=== PATIENT | female | born 1945 | race Asian ===

== ENCOUNTER → 2016-06-28 | Outpatient (CLI) | payer MEDICARE, OTHER ==
[~2016-06-28] MED LIST: COLACE PO; COUMADIN5 MG PO; DIOVAN HCT 80/11 TAB; DIOVAN HCT 80/11 TAB PO; ESTRACE0.5 MG PO; FISH OIL 1,2001 EAC1 PO; LIPITOR PO; LIPITOR20 MG; LORTAB 10/500 T1 TAB PO; MULTI-VITAMIN1 EAC1 PO; NASONEX17 GM; RECLAST 55 MG/100 M; VALSARTAN-HCTZ1 EACH PO; WOMEN'S DAILY1 EACH PO
== END | disposition home or self-care (01) ==
LOC: CSSDAY 10:52
DX: M81.0 Age-related osteoporosis without current pathological fracture (principal); Z79.899 Other long term (current) drug therapy
CPT/HCPCS: 36415; 82310; 96372; J0897